=== PATIENT | female | born 1965 | race African-American/Black ===

== ENCOUNTER 2024-02-03 09:44 | Outpatient (CLI) | payer OTHER | END 2024-02-03 09:45 | disposition home or self-care (01) | LOC: CSHMAMMO 09:44 | PROVIDERS: ATTEND Family Medicine | DX: Z12.31 Encounter for screening mammogram for malignant neoplasm of breast (principal); N64.89 Other specified disorders of breast | CPT/HCPCS: 77067 ==

== ENCOUNTER 2024-02-14 08:39 | Outpatient (CLI) | payer OTHER | END 2024-02-14 08:40 | disposition home or self-care (01) | LOC: CSHMAMMO 08:39 | PROVIDERS: ATTEND Family Medicine | DX: N64.89 Other specified disorders of breast (principal); N63.25 Unspecified lump in the left breast, overlapping quadrants | CPT/HCPCS: G0279 ==

== ENCOUNTER 2024-08-06 13:06 | Outpatient (CLI) | payer OTHER | END 2024-08-06 13:07 | disposition home or self-care (01) | LOC: CSHCT 13:06 | PROVIDERS: ATTEND Family Medicine | DX: Z12.2 Encounter for screening for malignant neoplasm of respiratory organs (principal); F17.211 Nicotine dependence, cigarettes, in remission; R91.1 Solitary pulmonary nodule; R91.8 Other nonspecific abnormal finding of lung field | CPT/HCPCS: 71271 ==